=== PATIENT | female | born 1985 | race Caucasian/White ===

== ENCOUNTER 2018-04-24 17:58 | Emergency (ER) | payer MEDICAID ==
[~2018-04-24] VITALS: Ht 157.5 cm; Wt 103.0 kg
[~2018-04-24 17:58] MED LIST: DOCU-131 PO; IBUP-1222 PO; NONE PER PT; OXYC-302 PO
[2018-04-24 18:05] VITALS: BP 115/81
== END 2018-04-24 18:41 | disposition home or self-care (01) ==
LOC: ED 18:35
DX: H92.02 Otalgia, left ear (principal)
CPT/HCPCS: 99281

== ENCOUNTER 2018-10-19 19:01 | Emergency (ER) | payer MEDICAID ==
[~2018-10-19] VITALS: Ht 160 cm; Wt 104.7 kg
[2018-10-19 19:06] VITALS: BP 129/86
[2018-10-19] MEDS ORDERED: FAMOTIDINE 20 MG TABLET ONE (19:58)
[2018-10-19] MEDS ORDERED: FAMOTIDINE 20 MG TABLET PO ONE (20:00)
== END 2018-10-19 20:13 | disposition home or self-care (01) ==
LOC: ED 19:31
DX: S50.861A Insect bite (nonvenomous) of right forearm, initial encounter (principal); W57.XXXA Bitten or stung by nonvenomous insect and other nonvenomous arthropods, initial encounter; Y93.89 Activity, other specified; Y92.89 Other specified places as the place of occurrence of the external cause; Y99.8 Other external cause status
CPT/HCPCS: 99284; J7512; Q0177

== ENCOUNTER 2018-10-25 19:26 | Emergency (ER) | payer MEDICAID ==
[~2018-10-25] VITALS: Ht 157.5 cm; Wt 103.6 kg
[2018-10-25 19:48] VITALS: BP 137/85
[2018-10-25] MEDS ORDERED: IBUPROFEN 200 MG TABLET ONE ×2 (21:28→21:40)
[2018-10-25] MEDS ORDERED: IBUPROFEN 800 MG TABLET PO STA (21:34)
[2018-10-25] MEDS ORDERED: DEXAMETHASONE 1 MG TABLET PO STA (21:34)
[2018-10-25] MEDS ORDERED: DEXAMETHASONE 4 MG TABLET ONE (21:40)
[2018-10-25] MEDS ORDERED: DEXAMETHASONE 4 MG TABLET PO STA (21:56)
== END 2018-10-25 22:14 | disposition home or self-care (01) ==
LOC: ED 21:17
DX: J20.8 Acute bronchitis due to other specified organisms (principal); J02.8 Acute pharyngitis due to other specified organisms; B97.89 Other viral agents as the cause of diseases classified elsewhere
CPT/HCPCS: 71046; 87081; 87880; 99284

== ENCOUNTER 2019-01-02 08:06 | Emergency (ER) | payer MEDICAID ==
[~2019-01-02] VITALS: Ht 157.5 cm; Wt 101.6 kg
[2019-01-02 08:14] VITALS: BP 147/104
--- NOTE | 2019-01-02 08:25 | NUR ---
DENTAL PAIN SINCE YESTERDAY. PAIN RADIATES TO HER LEFT EAR. NO MEDICAL HX. PT RESTING IN [facility], CALL LIGHT WITHIN REACH
== END 2019-01-02 09:07 | disposition home or self-care (01) ==
LOC: ED 08:53
DX: K05.00 Acute gingivitis, plaque induced (principal); K08.89 Other specified disorders of teeth and supporting structures
CPT/HCPCS: 99283

== ENCOUNTER 2019-01-29 08:38 | Emergency (ER) | payer MEDICAID ==
[~2019-01-29] VITALS: Ht 157.5 cm; Wt 100.1 kg
[2019-01-29 08:42] VITALS: BP 131/86
[2019-01-29] MEDS ORDERED: METOCLOPRAMIDE 10MG TABLET PO ONE (09:00)
[2019-01-29] MEDS ORDERED: KETOROLAC 30 MG/1 ML IM ONE (09:00)
[2019-01-29] MEDS ORDERED: DIPHENHYDRAMINE 25 MG CAPSULE PO ONE (09:00)
[2019-01-29] MEDS ORDERED: KETOROLAC 30 MG/1 ML ONE (09:12)
[2019-01-29] MEDS ORDERED: METOCLOPRAMIDE 10MG TABLET ONE (09:12)
[2019-01-29] MEDS ORDERED: DIPHENHYDRAMINE 25 MG CAPSULE ONE (09:12)
--- NOTE | 2019-01-29 09:51 | NUR ---
LATE ENTRY FOR 909: TORADOL HELD AT THIS TIME PER MD ORDER D/T PT TAKING 800MG ADVIL AT 0700.
[2019-01-29] MEDS ORDERED: ONDANSETRON ODT 4 MG ONE (10:11)
[2019-01-29] MEDS ORDERED: ONDANSETRON ODT 4 MG PO ONE (10:30)
== END 2019-01-29 10:37 ==
LOC: ED 09:22
DX: G43.019 Migraine without aura, intractable, without status migrainosus (principal); H92.01 Otalgia, right ear
CPT/HCPCS: 99284; Q0162; Q0163

== ENCOUNTER 2019-04-08 09:19 | Emergency (ER) | payer MEDICAID ==
[~2019-04-08] VITALS: Ht 157.5 cm; Wt 96.5 kg
[2019-04-08] MEDS ORDERED: SODIUM CHLORIDE FLUSH 10ML SYR IVF ONE (10:00)
--- NOTE | 2019-04-08 10:10 | NUR ---
LEADLIGHTER: PT TO ROOM FROM NELLIE CALHOUN.
[2019-04-08 10:15] LABS: BASOPHILS % (AUTO) 1 % (0-1); EOSINOPHILS # (AUTO) 0.07 x10^3/uL (0-0.4); EOSINOPHILS % (AUTO) 1 % (1-7); LYMPHOCYTES # (AUTO) 2.33 x10^3/uL (1-3.4); LYMPHOCYTES % (AUTO) 24 % (22-44); MD NO; MEAN CORPUSCULAR HEMOGLOBIN 30.5 pg (27.0-34.8); MEAN CORPUSCULAR HGB CONC 32.9 g/dL (32.4-35.8); MEAN CORPUSCULAR VOLUME 92.6 fL (80-100); MEAN PLATELET VOLUME 7.4 fL (7.4-10.4); MONOCYTES # (AUTO) 0.59 x10^3/uL (0.2-0.8); MONOCYTES % (AUTO) 6 % (2-9); NEUTROPHILS # (AUTO) 6.72 x10^3/uL (1.8-6.8); NEUTROPHILS % (AUTO) 69 % (42-75); PLATELET COUNT 289 x10^3/uL (130-400); RED BLOOD COUNT 4.97 x10^6/uL (3.82-5.3); RED CELL DISTRIBUTION WIDTH 14.1 % (9.6-15.2)
[2019-04-08 10:27] LABS: ALANINE AMINOTRANSFERASE 38 U/L (12-78); ANION GAP 5 mmol/L (5-15); CALCIUM 9.1 mg/dL (8.5-10.1); CHLORIDE 108 mmol/L (98-107); CREATININE 0.76 mg/dL (0.55-1.02)
[2019-04-08 10:29] LABS: ALKALINE PHOSPHATASE 112 U/L (45-117); BILIRUBIN,TOTAL 0.3 mg/dL (0.2-1.0); TOTAL PROTEIN 8.4 g/dL (6.4-8.2)
--- NOTE | 2019-04-08 10:56 | NUR ---
PT STATES SHE HAS VOMITED 7 TIMES SINCE YESTERDAY AND HAS HAD A LITTLE DIARRHEA. PT HAS A RASH ON HER CHEST FOR ONE MONTH
[2019-04-08] MEDS ORDERED: ONDANSETRON ODT 4 MG ONE (11:13)
[2019-04-08 11:16] LABS: HCG UR SG 1.024 (1.003-1.030); MICROSCOPIC NOT IND
[2019-04-08 11:21] LABS: CULTURE INDICATED? NO
[2019-04-08] MEDS ORDERED: ONDANSETRON ODT 4 MG PO ONE (11:30)
--- NOTE | 2019-04-08 11:34 | NUR ---
TOLERATED PO CHALLENGE
[2019-04-08 11:43] VITALS: BP 106/60
== END 2019-04-08 11:59 | disposition home or self-care (01) ==
LOC: ED 11:56
DX: R11.2 Nausea with vomiting, unspecified (principal); R19.7 Diarrhea, unspecified; B35.4 Tinea corporis
CPT/HCPCS: 36415; 80053; 81003; 81025; 83690; 85025; 99283; Q0162